=== PATIENT | female | born 1995 | race American Indian/Alaskan Native ===

== ENCOUNTER 2020-10-27 17:53 | Emergency (ER) | payer SELFPAY ==
--- NOTE | 2020-10-27 18:07 | Emergency Department Report ---
Blank Doc - Documentation Documentation: This is a 25-year-old female that presents with left flank pain and dysuria with hematuria. This initial assessment/diagnostic orders/clinical plan/treatment(s) is/are subject to change based on patient's health status, clinical progression and re- assessment by fellow clinical providers in the ED. Further treatment and workup at subsequent clinical providers discretion. Patient/guardians urged not to elope from the ED as their condition may be serious if not clinically assessed and managed. Initial orders include: 1- Patient sent to [facility] for further evaluation and treatment 2- UA 3- CT r/o renal calculus
[2020-10-27 18:09] VITALS: BP 131/76
[2020-10-27 19:05] LABS: Bilirubin,Urine NEG (Negative); Blood,Urine LG (Negative); Color,Urine Yellow (Yellow); Urobilinogen,Urine < 2.0 mg/dL (<2.0)
[2020-10-27 19:09] LABS: WBC,Urine > 182.0 /HPF (0.0-6.0)
[2020-10-27 19:10] LABS: HCG Qualitative,Urine Negative (Negative)
--- NOTE | 2020-10-27 20:07 | Cat Scan Report ---
CT ABDOMEN AND PELVIS WITHOUT IV CONTRAST INDICATION: left flank pain. COMPARISON: None available. TECHNIQUE: All CT scans at this facility use dose modulation, automated exposure control, iterative reconstructi on or weight based dosing, when appropriate, to reduce radiation dose to as low as reasonably achieva ble. FINDINGS: Lung Bases: No significant abnormality. Skeletal System: No acute abnormality. ABDOMEN: Liver: No significant abnormality. Gallbladder: No significant abnormality. Bile Ducts: No significant abnormality. Pancreas: No significant abnormality. Spleen: No significant abnormality. Adrenals: No significant abnormality. Right Kidney: No significant abnormality. Left Kidney: No significant abnormality. Upper GI tract: No significant abnormality. Lymph Nodes: No significant adenopathy. Aorta: No significant abnormality. Additional Findings: No significant abnormality. PELVIS: Colon: No acute abnormality. Urinary Bladder and Distal Ureters: Mild bladder wall thickening. Appendix: No acute finding. Appendicolith is incidentally noted. Lymph Nodes: No significant adenopathy. Additional Findings: None. IMPRESSION: 1. Mild bladder wall thickening could be seen in the setting of cystitis. 2. No stones or hydronephrosis. CT without contrast is relatively insensitive for pyelonephritis. Signer Name: Jesus Rodriguez MD Signed: 10/27/2020 8:02 PM Workstation Name: [id number]
[2020-10-27 20:26] LABS: Basophils % (Auto) 0.3 % (0.0-1.8); Eosinophils % (Auto) 0.1 % (0.0-4.3); Hematocrit 38.1 % (30.3-42.9); Hemoglobin 12.8 gm/dl (10.1-14.3); Lymphocytes # (Auto) 1.4 K/mm3 (1.2-5.4); Lymphocytes % (Auto) 12.1 % (13.4-35.0); Mean Corpuscular HGB Conc 34 % (30-34); Mean Corpuscular Volume 95 fl (79-97); Monocytes # (Auto) 0.6 K/mm3 (0.0-0.8); Monocytes % (Auto) 5.3 % (0.0-7.3); Platelet Count 192 K/mm3 (140-440); Red Blood Count 4.02 M/mm3 (3.65-5.03); Red Cell Distribution Width 13.4 % (13.2-15.2)
[2020-10-27 20:36] LABS: Alanine Aminotransferase 6 units/L (7-56); Albumin 3.9 g/dL (3.9-5); BUN/Creatinine Ratio 17; Blood Urea Nitrogen 10 mg/dL (7-17); Calcium 9.3 mg/dL (8.4-10.2); Hemolysis Index 115
[2020-10-27] MEDS ORDERED: LIDOCAINE-MPF (1%) 10 MG/1 ML VIAL 5 ML INFILTRATI ONE (20:53)
--- NOTE | 2020-10-27 21:00 | Emergency Department Report ---
ED Female HPI - General Chief complaint: Back Pain/Injury Stated complaint: TYPE 1 DIABETIC, POSS KIDNEY STONES Time Seen by Provider: 10/27/20 18:05 Source: patient Mode of arrival: Ambulatory Limitations: No Limitations - History of Present Illness Initial comments: Patient is a 25-year-old female presents emergency room complaints of suprapubic abdominal pain that began 2 days ago. She also has left-sided flank pain, hematuria, dysuria, nausea, urinary frequency, urinary urgency. She denies any vomiting, fever, chills, diarrhea, urinary retention, abnormal vaginal discharge. She has a past medical history of type 1 diabetes. She has an a llergy to penicillin and penicillin. Last menstrual cycle 10/14/2020. - Related Data Previous Rx's Medication Instructions Recorded Last Taken Type Acetaminophen/Codeine [Tylenol 1 tab PO Q6H PRN #10 tab 10/27/20 Unknown Rx /Codeine # 3 tab] Ciprofloxacin HCl [Ciprofloxacin 500 mg PO BID 7 Days #14 tab 10/27/20 Unknown Rx TAB] Phenazopyridine [Pyridium] 100 mg PO TID 4 Days #12 tab 10/27/20 Unknown Rx Promethazine [Phenergan] 25 mg PO Q8HR PRN #7 tab 10/27/20 Unknown Rx Allergies Allergy/AdvReac Type Severity Reaction Status Date / Time Penicillins Allergy Anaphylaxis Verified 10/27/20 18:07 ED Review of Systems ROS: Stated complaint: TYPE 1 DIABETIC, POSS KIDNEY STONES Other details as noted in HPI Comment: All other systems reviewed and negative ED Past Medical Hx - Past Medical History Previous Medical History?: Yes Hx Diabetes: Yes - Medications Home Medications: Home Medications Medication Instructions Recorded Confirmed Last Taken Type Acetaminophen/Codeine [Tylenol 1 tab PO Q6H PRN #10 tab 10/27/20 Unknown Rx /Codeine # 3 tab] Ciprofloxacin HCl [Ciprofloxacin 500 mg PO BID 7 Days #14 tab 10/27/20 Unknown Rx TAB] Phenazopyridine [Pyridium] 100 mg PO TID 4 Days #12 tab 10/27/20 Unknown Rx Promethazine [Phenergan] 25 mg PO Q8HR PRN #7 tab 10/27/20 Unknown Rx ED Physical Exam - General Limitations: No Limitations General appearance: alert, in no apparent distress - Head Head exam: Present: atraumatic, normocephalic - Eye Eye exam: Present: normal appearance - ENT ENT exam: Present: mucous membranes moist - Respiratory Respiratory exam: Present: normal lung sounds bilaterally. Absent: respiratory distress, wheezes, rales, rhonchi, stridor, chest wall tenderness, accessory muscle use, decreased breath sounds, prolonged expiratory - Cardiovascular Cardiovascular Exam: Present: regular rate, normal rhythm, normal heart sounds. Absent: systolic murmur, diastolic murmur, rubs, gallop - GI/Abdominal GI/Abdominal exam: Present: soft, tenderness (suprapubic ), normal bowel sounds. Absent: distended, guarding, rebound, rigid - Back Exam Back exam: Present: CVA tenderness (L). Absent: CVA tenderness (R) - Neurological Exam Neurological exam: Present: alert, oriented X3 - Psychiatric Psychiatric exam: Present: normal affect, normal mood - Skin Skin exam: Present: warm, dry, intact ED Course Vital Signs 10/27/20 10/27/20 18:07 21:45 Temperature 99.5 F Pulse Rate 72 84 Respiratory 18 18 Rate Blood Pressure 131/76 [Right] O2 Sat by Pulse 95 97 Oximetry ED Medical Decision Making - Lab Data Result diagrams: 10/27/20 20:03 10/27/20 20:03 Lab Results 10/27/20 10/27/20 10/27/20 Range/Units 18:24 20:03 20:03 WBC 11.2 H (4.5-11.0) K/mm3 RBC 4.02 (3.65-5.03) M/mm3 Hgb 12.8 (10.1-14.3) gm/dl Hct 38.1 (30.3-42.9) % MCV 95 (79-97) fl MCH 32 (28-32) pg MCHC 34 (30-34) % RDW 13.4 (13.2-15.2) % Plt Count 192 (140-440) K/mm3 Lymph % (Auto) 12.1 L (13.4-35.0) % [place] % (Auto) 5.3 (0.0-7.3) % Eos % (Auto) 0.1 (0.0-4.3) % Baso % (Auto) 0.3 (0.0-1.8) % Lymph # (Auto) 1.4 (1.2-5.4) K/mm3 [place] # (Auto) 0.6 (0.0-0.8) K/mm3 Eos # (Auto) 0.0 (0.0-0.4) K/mm3 Baso # (Auto) 0.0 (0.0-0.1) K/mm3 Seg Neutrophils % 82.2 H (40.0-70.0) % Seg Neutrophils # 9.2 H (1.8-7.7) K/mm3 Sodium 136 L (137-145) mmol/L Potassium 4.6 (3.6-5.0) mmol/L Chloride 101.6 (98-107) mmol/L Carbon Dioxide 19 L (22-30) mmol/L Anion Gap 20 mmol/L BUN 10 (7-17) mg/dL Creatinine 0.6 (0.6-1.2) mg/dL Estimated GFR > 60 ml/min BUN/Creatinine Ratio 17 % Glucose 289 H (65-100) mg/dL Calcium 9.3 (8.4-10.2) mg/dL Total Bilirubin 1.20 (0.1-1.2) mg/dL AST 17 (5-40) units/L ALT 6 L (7-56) units/L Alkaline Phosphatase 83 (35-129) units/L Total Protein 6.9 (6.3-8.2) g/dL Albumin 3.9 (3.9-5) g/dL Albumin/Globulin Ratio 1.3 % Urine Color Yellow (Yellow) Urine Turbidity Cloudy (Clear) Urine pH 5.0 (5.0-7.0) Ur Specific [place] 1.023 (1.003-1.030) Urine Protein 100 mg/dl (Negative) mg/dL Urine Glucose (UA) >=500 (Negative) mg/dL Urine Ketones 80 (Negative) mg/dL Urine Blood Lg (Negative) Urine Nitrite Pos (Negative) Urine Bilirubin Neg (Negative) Urine Urobilinogen < 2.0 (<2.0) mg/dL Ur Leukocyte Esterase Mod (Negative) Urine WBC (Auto) > 182.0 H (0.0-6.0) /HPF Urine RBC (Auto) 136.0 (0.0-6.0) /HPF Urine WBC Clumps 3+ /HPF Urine HCG, Qual Negative (Negative) Vital Signs 10/27/20 10/27/20 18:07 21:45 Temperature 99.5 F Pulse Rate 72 84 Respiratory 18 18 Rate Blood Pressure 131/76 [Right] O2 Sat by Pulse 95 97 Oximetry - Medical Decision Making Patient is a 25-year-old female presents emergency room complaints of suprapubic abdominal pain that began 2 days ago. She also has left-sided flank pain, hematuria, dysuria, nausea, urinary frequency, urinary urgency. She denies any vomiting, fever, chills, diarrhea, urinary retention, abnormal vaginal discharge. She has a past medical history of type 1 diabetes. She has an allergy to penicillin and penicillin. Last menstrual cycle 10/14/2020. Vitals are normal. On exam patient has suprapubic and left CVA tenderness. Labs with mildly elevated white blood cell count 11.2, blood glucose is 289. UA shows evidence of significant UTI. Urine is negative. Symptoms could be likely consistent with acute pyelonephritis given that patient has flank pain. She is an outpatient candidate at this time given that she has no fever, no vomiting, is tolerating p.o. intake, no significant leukocytosis. Discussed very strict return precautions in detail with patient. Patient given 1 g of ceftriaxone IM while in emergency department. Patient given prescription for ciprofloxacin, Phenergan, Pyridium, Tylenol with codeine. Advised patient Please take medication as prescribed. Medication may turn your urine orange this is normal. Increase your fluid intake significantly over the next few days. Follow-up with your primary care doctor and have your urine retested for clearance of bacteria. Return to emergency room immediately for any new or worsening symptoms including but not limited to worsening pain, fever, unable to tolerate by mouth intake, constant vomiting, etc. Critical care attestation.: If time is entered above; I have spent that time in minutes in the direct care of this critically ill patient, excluding procedure time. ED Disposition Clinical Impression: UTI (urinary tract infection) Qualifiers: Urinary tract infection type: site unspecified Hematuria presence: with hematuria Qualified Code(s): N39.0 - Urinary tract infection, site not specified Disposition: - TO HOME OR SELFCARE Is pt being admited?: No Does the pt Need Aspirin: No Condition: Stable Instructions: Urinary Tract Infection, Adult Additional Instructions: Please take medication as prescribed. Medication may turn your urine orange this is normal. Increase your fluid intake significantly over the next few days. Follow-up with your primary care doctor and have your urine retested for clearance of bacteria. Return to emergency room immediately for any new or worsening symptoms including but not limited to worsening pain, fever, unable to tolerate by mouth intake, constant vomiting, etc. Prescriptions: Ciprofloxacin HCl [Ciprofloxacin TAB] 500 mg PO BID 7 Days #14 tab Promethazine [Phenergan] 25 mg PO Q8HR PRN #7 tab PRN Reason: Nausea And Vomiting Phenazopyridine [Pyridium] 100 mg PO TID 4 Days #12 tab Acetaminophen/Codeine [Tylenol /Codeine # 3 tab] 1 tab PO Q6H PRN #10 tab PRN Reason: Pain , Severe (7-10) Referrals: PRIMARY CARE, [Primary Care Provider] - 3-5 Days Time of Disposition: 20:57 Print Language: SLOVENIAN
== END 2020-10-27 21:45 | disposition home or self-care (01) ==
LOC: ED 17:53
DX: N39.0 Urinary tract infection, site not specified (principal); E10.9 Type 1 diabetes mellitus without complications; Z79.899 Other long term (current) drug therapy; Z88.0 Allergy status to penicillin
CPT/HCPCS: 36415; 74176; 80053; 81001; 81025; 85025; 87086; 96372; 99284; J0696